=== PATIENT | male | born 1965 | race African-American/Black ===

== ENCOUNTER 2017-08-04 16:22 | Emergency (ER) | payer BC ==
[~2017-08-04] VITALS: Ht 175.3 cm; Wt 89.6 kg
[2017-08-04 17:56] LABS: HEMATOCRIT 42.2 % (38.0-50.0); HEMOGLOBIN 14.6 G/DL (12.5-16.6); MCH 29.5 PG (29.0-34.0); MCHC 34.6 G/DL (30.0-36.0); MCV 85.3 FL (86-99); PLATELET COUNT 262 K/uL (156-360); RBC DIS.WIDTH-CV 12.4 % (11.8-14.6); RBC DIS.WIDTH-SD 38.3 % (39-53); RED BLOOD COUNT 4.95 M/uL (4.00-5.50); WHITE BLOOD COUNT 5.7 K/uL (4.1-10.2)
[2017-08-04 18:12] LABS: ALBUMIN 4.6 g/dL (3.2-4.8); CHLORIDE 99 mEq/L (99-109); POTASSIUM 4.1 mEq/L (3.7-5.4); SODIUM 137 mEq/L (136-147)
[2017-08-04 18:14] LABS: GLUCOSE 160 mg/dL (70-99); TOTAL PROTEIN 7.6 g/dL (6.4-8.3)
[2017-08-04 18:16] LABS: TOTAL BILIRUBIN 0.3 mg/dL (0.0-1.0)
[2017-08-04 18:18] LABS: ALKALINE PHOSPHATASE 101 IU/L (3-129); CREATININE 1.1 mg/dL (0.6-1.3); GFR ESTIMATE (CALCULATED) > 59 mL/min/ (58.99-99999)
[2017-08-04 18:19] LABS: UREA NITROGEN (BUN) 15 mg/dL (9-23)
[2017-08-04 18:20] LABS: AST (GOT) 23 IU/L (2-34)
[2017-08-04 18:21] LABS: ALT (GPT) 42 IU/L (3-49)
[2017-08-04 18:28] LABS: APPEARANCE CLEAR ((CLEAR)); BILIRUBIN NEGATIVE; BLOOD NEGATIVE; COLOR STRAW ((YELLOW)); GLUCOSE (STRIP) NEGATIVE; KETONES NEGATIVE; LEUKOCYTES NEGATIVE; NITRITE NEGATIVE; PROTEIN (STRIP) NEGATIVE; UCUL ADDED? NO; UROBILINOGEN 0.2 MG/DL (0.2-1.0)
[2017-08-04 18:58] VITALS: BP 122/88
[2017-08-05 09:09] LABS: HEMOGLOBIN A1c (GLYCOHEMOGLOB) 10.3 % (Below 5.7)
== END 2017-08-04 19:01 | disposition home or self-care (01) ==
LOC: EME 16:22
PROVIDERS: Emergency Medicine
DX: R73.9 Hyperglycemia, unspecified (principal); I10 Essential (primary) hypertension; Z83.3 Family history of diabetes mellitus
CPT/HCPCS: 80053; 81003; 82948; 83036; 85027; 99281; 99283